=== PATIENT | female | born 1950 | race Caucasian/White ===

== ENCOUNTER 2017-08-26 07:49 | Inpatient (IN) | payer BC, OTHER ==
[2017-08-26 07:57] VITALS: BMI 28.2
[2017-08-26] MEDS ORDERED: SODIUM CHLORIDE 0.9% 1000 ML INFUS.BAG IV ONE (08:22)
[2017-08-26] MEDS ORDERED: FOLIC ACID 1 MG TABLET (FP) PO ONE (08:22)
[2017-08-26] MEDS ORDERED: ONDANSETRON 4 MG/2 ML VIAL IVPUSH ONE (08:22)
[2017-08-26] MEDS ORDERED: LORazepam 2 MG/ML SDV VIAL ONE ×2 (08:22→16:57)
[2017-08-26] MEDS ORDERED: ONDANSETRON 4 MG/2 ML VIAL ONE (08:23)
[2017-08-26] MEDS ORDERED: THIAMINE HCL 200 MG/2 ML VIAL ONE (08:26)
[2017-08-26] MEDS ORDERED: FOLIC ACID 1 MG TABLET (FP) ONE (08:26)
--- NOTE | 2017-08-26 08:31 | PDOC ---
History of Present Illness - History of Present Illness Initial Comments: 08/26/17 08:30 66 year old female with a hx of alcohol abuse presented to the hospital with 1 day hx of non-bloody, non-bilious vomiting and tremors. She states that she drinks every day, but tried to stop yesterday. She started to feel tremors and nauseous last night, and reports vomiting numerous times. Reports drinking 2 beers this morning. She complains of a severe headache and right shoulder pain after a fall yesterday. Denies fevers or chills, chest pain, SOB. Allergies: none Smoking: Alcohol: every day, 2-3 drinks <Gustavo Lux - Last Filed: 08/26/17 09:08> <Davis Cedillo - Last Filed: 08/26/17 11:08> - General Chief Complaint: Alcohol intoxication Stated Complaint: INTOX Past History - Past Medical History Anemia: No Asthma: No Cancer: No Cardiac Disorders: No CVA: No COPD: No CHF: No Dementia: No Diabetes: No GI Disorders: No Disorders: No HTN: No Hypercholesterolemia: No Liver Disease: No Psychiatric Problems: Yes (DEPRESSION) Seizures: No Thyroid Disease: No - Suicide/Smoking/Psychosocial Hx Smoking History: Never smoked Hx Alcohol Use: Yes Substance Use Type: Alcohol Hx Substance Use Treatment: Yes ([facility]) <Gustavo Lux - Last Filed: 08/26/17 09:08> <Davis Cedillo - Last Filed: 08/26/17 11:08> - Past Medical History Allergies/Adverse Reactions: Allergies Allergy/AdvReac Type Severity Reaction Status Date / Time No Known Allergies Allergy Verified 08/26/17 07:53 Home Medications: Ambulatory Orders Prednisolone 1% Ophthalmic [Pred Forte 1% -] 1 ml OP DAILY 08/06/13 *Physical Exam - Vital Signs Last Vital Signs Temp Pulse Resp BP Pulse Ox 98 F 117 H 32 H 132/89 99 08/26/17 07:50 08/26/17 07:50 08/26/17 07:50 08/26/17 07:50 08/26/17 07:50 - Physical Exam Comments: 08/26/17 09:04 GENERAL: A&Ox3, moderate distress EYES: PERRLA, EOMI ENT: Moist mucus membranes NECK: No JVD LUNGS: CTA, no wheezes HEART: RRR, no murmurs ABDOMEN: Soft, nontender, BS present MUSCULOSKELETAL: No CVA Tenderness EXTREMITIES: 2+ pulses, no edema. ecchymotic areas noted on R shoulder NEUROLOGICAL: Cranial nerves II-XII intact. moderate tremors noted diffusely <Gustavo Lux - Last Filed: 08/26/17 09:08> - Vital Signs Last Vital Signs Temp Pulse Resp BP Pulse Ox 98 F 117 H 32 H 132/89 99 08/26/17 07:50 08/26/17 07:50 08/26/17 07:50 08/26/17 07:50 08/26/17 07:50 <Davis Cedillo - Last Filed: 08/26/17 11:08> ED Treatment Course - LABORATORY CBC & Chemistry Diagram: 08/26/17 08:28 08/26/17 08:28 <Gustavo Lux - Last Filed: 08/26/17 09:08> - LABORATORY CBC & Chemistry Diagram: 08/26/17 08:28 08/26/17 08:28 - ADDITIONAL ORDERS Additional order review: Laboratory Results 08/26/17 08/26/17 08:28 08:28 Sodium 126 L Potassium 4.0 Chloride 86 L Carbon Dioxide 25 Anion Gap 15 BUN 15 Creatinine 1.1 H Creat Clearance w eGFR 49.39 Random Glucose 170 H Calcium 9.0 Total Bilirubin 1.5 H D AST 26 ALT 29 Alkaline Phosphatase 107 Troponin I < 0.02 Total Protein 8.0 Albumin 4.1 Alcohol, Quantitative < 5.0 08/26/17 08:28 RBC 5.32 H MCV 83.5 MCHC 33.7 RDW 13.6 MPV 7.5 Neutrophils % 74.1 Lymphocytes % 19.0 Monocytes % 6.2 D Eosinophils % 0.2 D Basophils % 0.5 - RADIOLOGY Radiology Studies Ordered: Category Date Time Status HEAD CT WITHOUT CONTRAST [CT] Stat CT Scan 08/26/17 08:23 Completed SHOULDER-RIGHT [RAD] Stat Radiology 08/26/17 08:23 Taken - Medications Given in the ED: ED Medications Discontinued Medications Generic Name Dose Route Start Last Admin Trade Name Freq PRN Reason Stop Dose Admin Folic Acid 1 mg 08/26/17 08:22 08/26/17 08:31 Folic Acid - PO 08/26/17 08:23 1 mg ONCE ONE Administration Lorazepam 2 mg 08/26/17 08:21 08/26/17 08:25 Ativan Injection - IVPUSH 08/26/17 08:22 2 mg ONCE ONE Administration Ondansetron HCl 4 mg 08/26/17 08:22 08/26/17 08:32 Zofran Injection IVPUSH 08/26/17 08:23 4 mg ONCE ONE Administration Sodium Chloride 1,000 ml 08/26/17 08:22 08/26/17 08:31 Normal Saline - IV 08/26/17 08:23 1,000 ml ONCE ONE Administration Thiamine HCl 200 mg 08/26/17 08:35 08/26/17 08:38 Vitamin B1 Injection - IVPB 08/26/17 08:36 200 mg ONCE ONE Administration <Davis Cedillo - Last Filed: 08/26/17 11:08> Medical Decision Making - Medical Decision Making 08/26/17 09:05 66 year old female hx alcohol abuse presents for alcohol withdrawal-like symptoms Plan: CBC, CMP, mag <Gustavo Lux - Last Filed: 08/26/17 09:08> *DC/Admit/Observation/Transfer <Gustavo Lux - Last Filed: 08/26/17 09:08> - Discharge Dispostion Decision to Admit order: Yes <Davis Cedillo - Last Filed: 08/26/17 11:08> Diagnosis at time of Disposition: Hyponatremia Alcohol withdrawal Qualifiers: Complication of substance-induced condition: with unspecified complication Qualified Code(s): F10.239 - Alcohol dependence with withdrawal, unspecified - Referrals Referrals: Jackson Guadalupe [Primary Care Provider] - - Patient Instructions - Post Discharge Activity
[2017-08-26] MEDS ORDERED: THIAMINE HCL 200 MG/2 ML VIAL IVPB ONE (08:35)
[2017-08-26 08:43] LABS: BASO % 0.5 % (0-2.0); EOS % 0.2 % (0-4.5); HEMATOCRIT 44.4 % (32.4-45.2); MCH 28.2 pg (25.7-33.7); MCHC 33.7 g/dl (32.0-36.0); MEAN CELL VOLUME 83.5 fl (80-96); MEAN PLT VOLUME 7.5 fl (7.5-11.1); MONO % 6.2 % (3.8-10.2); NEUT % 74.1 % (42.8-82.8); PLATELET COUNT 572 K/MM3 (134-434); RBC 5.32 M/mm3 (3.60-5.2); RDW 13.6 % (11.6-15.6); WHITE BLOOD COUNT 14.8 K/mm3 (4.0-10.0)
--- NOTE | 2017-08-26 08:58 | PDOC ---
Attending Attestation - HPI HPI: 08/26/17 09:09 The patient is a 66 year old female with a significant past medical history of EtOH abuse who presents to the emergency department for evaluation of alcohol intoxication. The patient was found in her home by her friend unresponsive, reeking of alcohol this morning. The patient reports drinking her last beer at 6am. She states she has been binge drinking over the last week, but tried to stop. The patient reports moderate right shoulder pain after a fall yesterday. The patient reports associated symptoms of diaphoresis, headache, nausea, and multiple episodes of NBNB emesis since midnight. She states she was sober a couple of months ago. The patient admits to undergoing detox for EtOH abuse. The patient denies chest pain, shortness of breath, dizziness, fever, chills, and urinary/bowel issues. Allergies: NKDA Social History: Alcohol consumption reported. No cigarette or drug use reported. Surgical History: Patient denies. PCP: Dr. Guadalupe ([phone]) - Physicial Exam PE: Vitals: Triage Vital signs reviewed General Appearance: no acute distress, well nourished well developed, Head: Atraumatic, normocephalic Eyes: Pupils equal reactive round, extraocular movement intact Neck: Supple Chest Wall: Nontender Cardiac: Regular rate and rhythm, no murmurs, no rubs, no gallops, Lungs: Clear to auscultation bilateral, good air movement bilaterally, Abdomen: Soft, nondistended, nontender Extremities: Full range of motion to all extremities, no cyanosis, clubbing, or edema Skin: Warm and dry, no rashes or lesions, no petechiae Psych: normal mood, normal affect <Vicki Ng - Last Filed: 08/26/17 10:23> - Resident Resident Name: Gustavo Lux - ED Attending Attestation I have performed the following: I have examined & evaluated the patient, The case was reviewed & discussed with the resident, I agree w/resident's findings & plan, Exceptions are as noted - Critical Care Time Total Critical Care Time: 35 Critical Care Statement: The care of this patient involved high complexity decision making to prevent further life threatening deterioration of the patient 's condition and/or to evaluate & treat vital organ system(s) failure or risk of failure. - Medical Decision Making 08/26/17 16:44 The patient is a 66 year old female with a significant past medical history of EtOH abuse who presents to the emergency department for evaluation of alcohol intoxication. The patient was found in her home by her friend unresponsive, reeking of alcohol this morning. The patient reports drinking her last beer at 6am. She states she has been binge drinking over the last week, but tried to stop. The patient reports moderate right shoulder pain after a fall yesterday. The patient reports associated symptoms of diaphoresis, headache, nausea, and multiple episodes of NBNB emesis since midnight. She states she was sober a couple of months ago. The patient admits to undergoing detox for EtOH abuse. Patient presents to the emergency department in alcohol withdrawal. Given tachycardia and anxiousness diaphoresis nausea 2 mg Ativan given IV fluids given thiamine and folate acid given Given history of fall head CT shoulder x-ray chest x-ray performed no significant acute pathology noted Given the need for intravenous medication to control alcohol withdrawal patient to be observed in the hospital for additional monitoring and management of acute alcohol withdrawal <Davis Cedillo - Last Filed: 08/26/17 16:45> Attestations - Attestations Documentation prepared by Vicki Ng, acting as medical csr for Davis Cedillo MD. <Vicki Ng - Last Filed: 08/26/17 10:23>
[2017-08-26 09:03] LABS: ALBUMIN 4.1 g/dl (3.4-5.0); ANION GAP 15 (8-16); BILIRUBIN,TOTAL 1.5 mg/dL (0.2-1.0); BLOOD UREA NITROGEN 15 mg/dL (7-18); CHLORIDE 86 mmol/L (98-107); CO2 25 mmol/L (21-32); CREATININE 1.1 mg/dL (0.55-1.02); GLUCOSE,RANDOM 170 mg/dL (74-106); SGOT/AST 26 U/L (15-37); SGPT/ALT 29 U/L (12-78); SODIUM 126 mmol/L (136-145)
[2017-08-26 09:04] LABS: ALK PHOS 107 U/L (45-117)
[2017-08-26] MEDS ORDERED: THIAMINE HCL 200 MG/2 ML VIAL IVPB SCH (10:00)
--- NOTE | 2017-08-26 11:29 | HP ---
CHIEF COMPLAINT: " Tremors, NBNB vomiting after I stopped drinking alcohol" PCP: Dr. Beyer Pschiatrist: Dr. Guadalupe HISTORY OF PRESENT ILLNESS: Patient is a 66 year old female presented to the ED with the chief complaint of tremors, NBNB vomiting after she stopped drinking alcohol. As per the patient, she has been an alcoholic on/off since age 23 yrs, has been an AA member, goes to the meeting but it doesn't help, last rehab was 4 yrs ago. Patient reports she drank alcohol over the weekend-finished 2 bottles of vodka and 18 cans of beer. Had a mechanical fall and hit her right side of the head, remembers that she blacked out but doesn't remember the details. She stopped drinking since Wednesday and started having tremors, NBNB vomiting, several episodes, belching but no abdominal pain. This morning she took 2 cans of beer which didn't help her symptoms hence came in to the ED for further evaluation. Hasn't been drinking water or eating proper food for many days. At this time, denies chest pain, sob, cough, palpitation, abdominal pain, vomiting, headache, blurring of vision. Bowel habit normal. Last BM was today. Bladder habit normal. Sleep normal. 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, retinal detachment PAST SURGICAL HISTORY: Right eye surgery Social History: Smoking: Denies Alcohol: Started drinking at age 23, last drink this morning- 2 cans of beer Drugs: Denies Family History: Non contributory Allergies No Known Allergies Allergy (Verified 08/26/17 07:53) HOME MEDICATIONS: Home Medications Medication Instructions Recorded Prednisolone 1% Ophthalmic [Pred 1 ml OP DAILY 08/06/13 Forte 1% -] REVIEW OF SYSTEMS CONSTITUTIONAL: Absent: fever, chills, diaphoresis, generalized weakness, malaise, loss of appetite, weight change HEENT: Absent: rhinorrhea, nasal congestion, throat pain, throat swelling, difficulty swallowing, mouth swelling, ear pain, eye pain, visual changes CARDIOVASCULAR: Absent: chest pain, syncope, palpitations, irregular heart rate, lightheadedness , peripheral edema RESPIRATORY: Absent: cough, shortness of breath, dyspnea with exertion, orthopnea, wheezing, stridor, hemoptysis GASTROINTESTINAL: Present: Nausea, vomiting Absent: abdominal pain, abdominal distension, diarrhea, constipation, melena, hematochezia GENITOURINARY: Absent: dysuria, frequency, urgency, hesitancy, hematuria, flank pain, genital pain MUSCULOSKELETAL: Absent: myalgia, arthralgia, joint swelling, back pain, neck pain SKIN: Absent: rash, itching, pallor HEMATOLOGIC/IMMUNOLOGIC: Absent: easy bleeding, easy bruising, lymphadenopathy, frequent infections ENDOCRINE: Absent: unexplained weight gain, unexplained weight loss, heat intolerance, cold intolerance NEUROLOGIC: Absent: headache, focal weakness or paresthesias, dizziness, unsteady gait, seizure, mental status changes, bladder or bowel incontinence PSYCHIATRIC: Absent: anxiety, depression, suicidal or homicidal ideation, hallucinations. PHYSICAL EXAMINATION Vital Signs - 24 hr 08/26/17 07:50 Temperature 98 F Pulse Rate 117 H Respiratory 32 H Rate Blood Pressure 132/89 O2 Sat by Pulse 99 Oximetry (%) GENERAL: Patient is a middle aged women, lying comfortably in bed, Awake, alert , and fully oriented, in no acute distress. HEAD: Bluish/yellowish discoloration on the right temporal area and right mandible. EYES: EOM intact, no pallor or icterus. Right eye-complete loss of vision. EARS, NOSE, THROAT: Ears normal. Dry mucous membranes. NECK: Supple. LUNGS: B/L Breath sounds equal, clear to auscultation bilaterally. No wheezes, and no crackles. No accessory muscle use. HEART: Tachycardic, Regular rate and rhythm, normal S1 and S2 without murmur. ABDOMEN: Soft, nontender, not distended, normoactive bowel sounds, no guarding, no rebound, no masses. No hepatomegaly or splenomegaly. MUSCULOSKELETAL: Normal range of motion at all joints. No bony deformities or tenderness. No CVA tenderness. UPPER EXTREMITIES: 2+ pulses, warm, well-perfused. No cyanosis. No clubbing. No peripheral edema. LOWER EXTREMITIES: 2+ pulses, warm, well-perfused. No calf tenderness. No peripheral edema. NEUROLOGICAL: No facial droop, B/L upper extremity tremors +; Cranial nerves II -XII intact. Normal speech. Gait not observed. PSYCHIATRIC: Cooperative. Good eye contact. Appropriate mood and affect. SKIN: Warm, dry, normal turgor, no rashes or lesions noted, normal capillary refill. Laboratory Results - last 24 hr 08/26/17 08/26/17 08/26/17 08:28 08:28 08:28 WBC 14.8 H D RBC 5.32 H Hgb 15.0 D Hct 44.4 MCV 83.5 MCH 28.2 MCHC 33.7 RDW 13.6 Plt Count 572 H D MPV 7.5 Absolute Neuts (auto) 11.0 Neutrophils % 74.1 Lymphocytes % 19.0 Monocytes % 6.2 D Eosinophils % 0.2 D Basophils % 0.5 Nucleated RBC % 0 Sodium 126 L Potassium 4.0 Chloride 86 L Carbon Dioxide 25 Anion Gap 15 BUN 15 Creatinine 1.1 H Creat Clearance w eGFR 49.39 Random Glucose 170 H Calcium 9.0 Total Bilirubin 1.5 H D AST 26 ALT 29 Alkaline Phosphatase 107 Troponin I < 0.02 Total Protein 8.0 Albumin 4.1 Alcohol, Quantitative < 5.0 ASSESSMENT/PLAN: Patient is a 66 year old female with significant past medical history of Alcohol abuse, Depression, 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 # Asymptomatic hyponatremia likely due to poor oral intake and beer potomania Na- 126, Will give her IV fluids, repeat BMP at 2pm. Will check Mg, Phos at . Encourage PO intake # Alcohol withdrawal CIWA score of 4 Feels better after she received 4mg of IV Ativan Still nauseous, No Zofran or any qtc prolonging agents to be given. Will give IV Phenargan 12.5 mg Q6H PRN IV Ativan 2mg TID PRN for withdrawals, rest as per Dr. Camejo Detox consult requested Alcohol cessation counseling # Prolonged Qtc Admit in Tele, continuous cardiac monitoring Qtc - 532, will repeat EKG in the evening Hold Lexapro as it causes prolonged qtc. Avoid any agents prolonging qtc. # Depression Hold Lexapro # FEN IV NS @ 100 mls/hr Electrolytes to be repeated Regular diet # Prophylaxis For DVT: On SCDs, ambulating For GI: IV Protonix 40 mg BID # Code Status: Full Code # Dispo: Admitted in Tele/Inpatient. Duration of stay unknown. Illness, Investigation and Plan of care explained to the patient. She verbalized understanding. Case discussed with Dr. Patrick. Hospitalist Screening - Colonoscopy Questionnaire Colonoscopy Questionnaire: Colonoscopy Questionnaire
[2017-08-26] MEDS ORDERED: SODIUM CHLORIDE 1,000 ML IV SCH (11:45)
--- NOTE | 2017-08-26 12:54 | PN ---
Teaching Attending Note Name of Resident: Jenny Holm ATTENDING PHYSICIAN STATEMENT I saw and evaluated the patient. I reviewed the resident's note and discussed the case with the resident. I agree with the resident's findings and plan as documented. SUBJECTIVE: This is a 66 year old woman with a history of alcohol abuse who comes to the ED complaining of tremors and vomiting. She reports binge drinking 2 bottles of vodka and 18 cans of beer over this past weekend 08/20-. She reports blacking out and hitting the right side of the head. Her last drink was 08/23. Since then she has been vomiting and feeling tremulous. She denies abdominal pain, hematemesis, melena, rectal bleeding. This morning she drank 2 cans of beer without improvement of her symptoms. OBJECTIVE: Vital Signs Period Temp Pulse Resp BP Sys/[place] Pulse Ox Last 24 Hr 98 F-98.8 F 92-117 18-32 132-150/89-89 99-100 HEART: S1S2, tachycardic LUNGS: Clear ABDOMEN: Soft, non-tender, non-distended, normal BS EXTREMITIES: No edema Laboratory Tests 08/26/17 08/26/17 08/26/17 08:28 08:28 08:28 WBC 14.8 H D RBC 5.32 H Hgb 15.0 D Hct 44.4 MCV 83.5 MCH 28.2 MCHC 33.7 RDW 13.6 Plt Count 572 H D MPV 7.5 Absolute Neuts (auto) 11.0 Neutrophils % 74.1 Lymphocytes % 19.0 Monocytes % 6.2 D Eosinophils % 0.2 D Basophils % 0.5 Nucleated RBC % 0 Sodium 126 L Potassium 4.0 Chloride 86 L Carbon Dioxide 25 Anion Gap 15 BUN 15 Creatinine 1.1 H Creat Clearance w eGFR 49.39 Random Glucose 170 H Calcium 9.0 Total Bilirubin 1.5 H D AST 26 ALT 29 Alkaline Phosphatase 107 Troponin I < 0.02 Total Protein 8.0 Albumin 4.1 Alcohol, Quantitative < 5.0 Home Medications Medication Instructions Recorded Prednisolone 1% Ophthalmic [Pred 1 ml OP DAILY 08/06/13 Forte 1% -] ASSESSMENT AND PLAN: This is a 66 year old woman with a history of alcohol abuse who presented to the ED with tremors and vomiting 3 days after binge drinking. 1. Hyponatremia - Secondary to poor oral intake, alcohol - IV fluid - Monitor electrolytes 2. Alcohol withdrawal, uncomplicated - Start Librium detox 3. Alcohol abuse, episodic - Start multivitamin, thiamine, folic acid 4. Prolonged QTc - Hold Lexapro - Monitor on telemetry - Repeat EKG
[2017-08-26 13:02] LABS: URINE APPEARANCE CLEAR; URINE BILIRUBIN NEGATIVE (<2.0 mg/dL); URINE COLOR LTYELLOW; URINE GLUCOSE (UA) NEGATIVE (NEGATIVE); URINE KETONE TRACE (NEGATIVE); URINE NITRITE NEGATIVE (NEGATIVE); URINE PROTEIN NEGATIVE (NEGATIVE); URINE UROBILINOGEN NEGATIVE mg/dL (0.2-1.0)
[2017-08-26 13:03] LABS: URINE LEUK ESTERASE 2+ (NEGATIVE)
[2017-08-26 13:05] LABS: EPI CELLS RARE /HPF (FEW)
[2017-08-26] MEDS ORDERED: PROMETHAZINE HCL 25 MG/1 ML VIAL IVPB PRN (13:08)
[2017-08-26] MEDS ORDERED: LORazepam 2 MG/ML SDV VIAL IVPUSH PRN (13:14)
[2017-08-26] MEDS ORDERED: PANTOPRAZOLE SODIUM 40 MG VIAL ONE (13:25)
[2017-08-26 13:26] LABS: COCAINE, UR NEGATIVE ng/ml (CUTOFF=300); METHADONE, UR NEGATIVE ng/ml (CUTOFF=300); OPIATES, URI NEGATIVE ng/ml (CUTOFF=300); PHENCYCLIDINE,URINE NEGATIVE ng/ml (CUTOFF=25); URINE AMPHETAMINES NEGATIVE ng/ml (CUTOFF=500); URINE BARBITURATES NEGATIVE ng/ml (CUTOFF=200); URINE BENZODIAZEPINES NEGATIVE ng/ml (CUTOFF=200)
[2017-08-26] MEDS: PANTOPRAZOLE SODIUM 40 MG VIAL IVPUSH SCH ×2 (13:31→22:52)
--- NOTE | 2017-08-26 13:57 | EKG ---
Test Reason : Blood Pressure : / mmHG Vent. Rate : 095 BPM Atrial Rate : 095 BPM P-R Int : 108 ms QRS Dur : 100 ms QT Int : 424 ms P-R-T Axes : -02 043 063 degrees QTc Int : 532 ms POOR DATA QUALITY, INTERPRETATION MAY BE ADVERSELY AFFECTED SINUS RHYTHM WITH SHORT MD PROLONGED QT ABNORMAL ECG WHEN COMPARED WITH ECG OF 06-AUG-2013 16:01, QT HAS LENGTHENED Confirmed by BRYANT ROBISON, OLGA ([id number]) on 08/26/2017 1:57:19 PM Referred By: Confirmed By:OLGA HURTADO MD
[2017-08-26 15:10] LABS: ANION GAP 12 (8-16); BLOOD UREA NITROGEN 13 mg/dL (7-18); CALCIUM 8.3 mg/dL (8.5-10.1); CHLORIDE 92 mmol/L (98-107); CO2 27 mmol/L (21-32); CREATININE 0.8 mg/dL (0.55-1.02); GLUCOSE,RANDOM 118 mg/dL (74-106); POTASSIUM 3.6 mmol/L (3.5-5.1); SODIUM 131 mmol/L (136-145)
[2017-08-26 15:12] LABS: PHOSPHOROUS 3.9 mg/dL (2.5-4.9)
--- NOTE | 2017-08-26 15:51 | EKG ---
Test Reason : Blood Pressure : / mmHG Vent. Rate : 107 BPM Atrial Rate : 107 BPM P-R Int : 114 ms QRS Dur : 098 ms QT Int : 386 ms P-R-T Axes : 030 050 067 degrees QTc Int : 515 ms SINUS TACHYCARDIA OTHERWISE NORMAL ECG WHEN COMPARED WITH ECG OF 26-AUG-2017 11:50, NO SIGNIFICANT CHANGE WAS FOUND Confirmed by OLGA HURTADO MD ([id number]) on 08/26/2017 3:50:50 PM Referred By: Confirmed By:OLGA HURTADO MD
[2017-08-26 16:52] LABS: MAGNESIUM 2.3 mg/dL (1.8-2.4)
--- NOTE | 2017-08-26 17:35 | PN ---
S CIWA - CIWA Score Nausea/Vomitin-No Nausea/No Vomiting (alcohol withdrawal) Muscle Tremors: 2 Anxiety: 1-Mildly Anxious Agitation: 1-Slight > Activity Paroxysmal Sweats: No Perspiration Orientation: 0-Oriented Tacttile Disturbances: 0-None Auditory Disturbances: 0-None Visual Disturbances: 0-None Headache: 2-Mild (pt in alcohol withdrawal) CIWA-Ar Total Score: 6
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
[2017-08-26] MEDS ORDERED: chlordiazePOXIDE HCL 25 MG CAPSULE PO PRN (17:45)
[2017-08-26] MEDS ORDERED: chlordiazePOXIDE HCL 25 MG CAPSULE ONE (17:46)
[2017-08-26] MEDS: chlordiazePOXIDE HCL 25 MG CAPSULE PO ONE ×2 (17:46→17:51)
[2017-08-26] MEDS: chlordiazePOXIDE HCL 25 MG CAPSULE PO SCH (22:51)
[2017-08-27] MEDS: chlordiazePOXIDE HCL 25 MG CAPSULE PO SCH ×3 (05:49→16:52)
--- NOTE | 2017-08-27 07:14 | PN ---
Physical Exam: SUBJECTIVE: Patient seen and examined OBJECTIVE: Vital Signs Period Temp Pulse Resp BP Sys/[place] Pulse Ox Last 24 Hr 97.9 F-98.8 F 72-117 16-32 125-150/58-89 97-100 GENERAL: The patient is awake, alert, and fully oriented, in no acute distress. HEAD: Normal with no signs of trauma. EYES: PERRL, extraocular movements intact, sclera anicteric, conjunctiva clear. No ptosis. ENT: Ears normal, nares patent, oropharynx clear without exudates, moist mucous membranes. NECK: Trachea midline, full range of motion, supple. LUNGS: Breath sounds equal, clear to auscultation bilaterally, no wheezes, no crackles, no accessory muscle use. HEART: Regular rate and rhythm, S1, S2 without murmur, rub or gallop. ABDOMEN: Soft, nontender, nondistended, normoactive bowel sounds, no guarding, no rebound, no hepatosplenomegaly, no masses. EXTREMITIES: 2+ pulses, warm, well-perfused, no edema. NEUROLOGICAL: Cranial nerves II through XII grossly intact. Normal speech, gait not observed. PSYCH: Normal mood, normal affect. SKIN: Warm, dry, normal turgor, no rashes or lesions noted Laboratory Results - last 24 hr 08/26/17 08/26/17 08/26/17 08:28 08:28 08:28 WBC 14.8 H D RBC 5.32 H Hgb 15.0 D Hct 44.4 MCV 83.5 MCH 28.2 MCHC 33.7 RDW 13.6 Plt Count 572 H D MPV 7.5 Absolute Neuts (auto) 11.0 Neutrophils % 74.1 Lymphocytes % 19.0 Monocytes % 6.2 D Eosinophils % 0.2 D Basophils % 0.5 Nucleated RBC % 0 Sodium 126 L Potassium 4.0 Chloride 86 L Carbon Dioxide 25 Anion Gap 15 BUN 15 Creatinine 1.1 H Creat Clearance w eGFR 49.39 Random Glucose 170 H Calcium 9.0 Phosphorus Magnesium Total Bilirubin 1.5 H D AST 26 ALT 29 Alkaline Phosphatase 107 Troponin I < 0.02 Total Protein 8.0 Albumin 4.1 Urine Color Urine Appearance Urine pH Ur Specific [place] Urine Protein Urine Glucose (UA) Urine Ketones Urine Blood Urine Nitrite Urine Bilirubin Urine Urobilinogen Ur Leukocyte Esterase Urine WBC (Auto) Urine RBC (Auto) Ur Epithelial Cells Opiates Screen Methadone Screen Barbiturate Screen Phencyclidine Screen Ur Amphetamines Screen MDMA (Ecstasy) Screen Benzodiazepines Screen Cocaine Screen U Marijuana (THC) Screen Alcohol, Quantitative < 5.0 08/26/17 08/26/17 08/26/17 12:50 12:53 14:15 WBC RBC Hgb Hct MCV MCH MCHC RDW Plt Count MPV Absolute Neuts (auto) Neutrophils % Lymphocytes % Monocytes % Eosinophils % Basophils % Nucleated RBC % Sodium Potassium Chloride Carbon Dioxide Anion Gap BUN Creatinine Creat Clearance w eGFR Random Glucose Calcium Phosphorus 3.9 Magnesium 2.3 Total Bilirubin AST ALT Alkaline Phosphatase Troponin I Total Protein Albumin Urine Color Ltyellow Urine Appearance Clear Urine pH 6.0 Ur Specific [place] 1.005 Urine Protein Negative Urine Glucose (UA) Negative Urine Ketones Trace H Urine Blood 1+ H Urine Nitrite Negative Urine Bilirubin Negative Urine Urobilinogen Negative Ur Leukocyte Esterase 2+ H Urine WBC (Auto) 1 Urine RBC (Auto) 1 Ur Epithelial Cells Rare Opiates Screen Negative Methadone Screen Negative Barbiturate Screen Negative Phencyclidine Screen Negative Ur Amphetamines Screen Negative MDMA (Ecstasy) Screen Negative Benzodiazepines Screen Negative Cocaine Screen Negative U Marijuana (THC) Screen Negative Alcohol, Quantitative 08/26/17 14:15 WBC RBC Hgb Hct MCV MCH MCHC RDW Plt Count MPV Absolute Neuts (auto) Neutrophils % Lymphocytes % Monocytes % Eosinophils % Basophils % Nucleated RBC % Sodium 131 L Potassium 3.6 Chloride 92 L Carbon Dioxide 27 Anion Gap 12 BUN 13 Creatinine 0.8 Creat Clearance w eGFR > 60 Random Glucose 118 H Calcium 8.3 L Phosphorus Magnesium Total Bilirubin AST ALT Alkaline Phosphatase Troponin I Total Protein Albumin Urine Color Urine Appearance Urine pH Ur Specific [place] Urine Protein Urine Glucose (UA) Urine Ketones Urine Blood Urine Nitrite Urine Bilirubin Urine Urobilinogen Ur Leukocyte Esterase Urine WBC (Auto) Urine RBC (Auto) Ur Epithelial Cells Opiates Screen Methadone Screen Barbiturate Screen Phencyclidine Screen Ur Amphetamines Screen MDMA (Ecstasy) Screen Benzodiazepines Screen Cocaine Screen U Marijuana (THC) Screen Alcohol, Quantitative Active Medications Generic Name Dose Route Start Last Admin Trade Name Freq PRN Reason Stop Dose Admin Chlordiazepoxide HCl 50 mg 08/26/17 23:00 08/27/17 05:49 Librium - PO 08/27/17 17:01 50 mg [id number] SU Administration Chlordiazepoxide HCl 25 mg 08/27/17 23:00 Librium - PO 08/28/17 17:01 [id number] SU Chlordiazepoxide HCl 15 mg 08/28/17 23:00 Librium - PO 08/29/17 17:01 [id number] SU Chlordiazepoxide HCl 25 mg 08/26/17 17:45 Librium - PO 08/29/17 17:44 Q4H PRN WITHDRAWAL(CONT SUBST) Sodium Chloride 1,000 mls @ 100 mls/hr 08/26/17 11:45 08/26/17 11:57 Normal Saline - IV 100 mls/hr ASDIR SU Administration Lorazepam 2 mg 08/26/17 13:14 08/26/17 17:03 Ativan Injection - IVPUSH 2 mg TID PRN Administration WITHDRAWAL(CONT SUBST) Pantoprazole Sodium 40 mg 08/26/17 12:30 08/26/17 22:52 Protonix Iv IVPUSH 40 mg BID SU Administration Promethazine HCl 12.5 mg 08/26/17 13:08 Phenergan Injection - IVPB Q6H PRN NAUSEA AND/OR VOMITING Current Medications Chlordiazepoxide HCl (Librium -) 50 mg PO [id number] SU Stop: 08/27/17 17:01 Last Admin: 08/27/17 05:49 Dose: 50 mg Chlordiazepoxide HCl (Librium -) 25 mg PO [id number] SU Stop: 08/28/17 17:01 Chlordiazepoxide HCl (Librium -) 15 mg PO [id number] SU Stop: 08/29/17 17:01 Chlordiazepoxide HCl (Librium -) 25 mg PO Q4H PRN PRN Reason: WITHDRAWAL(CONT SUBST) Stop: 08/29/17 17:44 Sodium Chloride (Normal Saline -) 1,000 mls @ 100 mls/hr IV ASDIR SU Last Admin: 08/26/17 11:57 Dose: 100 mls/hr Lorazepam (Ativan Injection -) 2 mg IVPUSH TID PRN PRN Reason: WITHDRAWAL(CONT SUBST) Last Admin: 08/26/17 17:03 Dose: 2 mg Pantoprazole Sodium (Protonix Iv) 40 mg IVPUSH BID SU Last Admin: 08/26/17 22:52 Dose: 40 mg Promethazine HCl (Phenergan Injection -) 12.5 mg IVPB Q6H PRN PRN Reason: NAUSEA AND/OR VOMITING Ambulatory Orders Prednisolone 1% Ophthalmic [Pred Forte 1% -] 1 ml OP DAILY 08/06/13 ASSESSMENT/PLAN:
[2017-08-27 07:21] LABS: HEMOGLOBIN 12.6 GM/dL (10.7-15.3); MCHC 34.1 g/dl (32.0-36.0); MEAN CELL VOLUME 85.1 fl (80-96); MEAN PLT VOLUME 7.1 fl (7.5-11.1); PLATELET COUNT 354 K/MM3 (134-434); RBC 4.35 M/mm3 (3.60-5.2); RDW 13.8 % (11.6-15.6); WHITE BLOOD COUNT 6.5 K/mm3 (4.0-10.0)
[2017-08-27 08:35] LABS: ANION GAP 9 (8-16); BLOOD UREA NITROGEN 14 mg/dL (7-18); CHLORIDE 103 mmol/L (98-107); CO2 29 mmol/L (21-32); GLUCOSE,RANDOM 88 mg/dL (74-106); POTASSIUM 3.2 mmol/L (3.5-5.1); SODIUM 141 mmol/L (136-145)
[2017-08-27 08:37] LABS: CREATININE 0.7 mg/dL (0.55-1.02)
[2017-08-27] MEDS: PANTOPRAZOLE SODIUM 40 MG VIAL IVPUSH SCH (09:14)
[2017-08-27] MEDS ORDERED: POTASSIUM CHLORIDE ORAL LIQUID 20 MEQ/15 ML PO SCH (10:00)
[2017-08-27 13:05] LABS: MAGNESIUM 2.7 mg/dL (1.8-2.4); PHOSPHOROUS 3.1 mg/dL (2.5-4.9)
--- NOTE | 2017-08-27 14:17 | PN ---
Teaching Attending Note Name of Resident: Reina Beckett ATTENDING PHYSICIAN STATEMENT I saw and evaluated the patient. I reviewed the resident's note and discussed the case with the resident. I agree with the resident's findings and plan as documented with exceptions below. SUBJECTIVE: patient seen and examined, feels better, no new complaints. OBJECTIVE: Vital Signs Period Temp Pulse Resp BP Sys/[place] Pulse Ox Last 24 Hr 97.8 F-98.6 F 72-106 16-20 122-143/58-82 95-100 Intake & Output 08/24/17 08/25/17 08/26/17 08/27/17 23:59 23:59 23:59 23:59 Intake Total 120 800 Balance 120 800 Weight 175 lb General: sitting in bed in no acute distress Extremities: minimal tremors upper extremities Chest: CTAB, no rales or wheezing Abdomen: soft, NT, ND CVS:S1S2 regular Home Medications Medication Instructions Recorded Prednisolone 1% Ophthalmic [Pred 1 ml OP DAILY 08/06/13 Forte 1% -] Active Medications Chlordiazepoxide HCl (Librium -) 50 mg PO [id number] [facility] Stop: 08/27/17 17:01 Last Admin: 08/27/17 11:26 Dose: 50 mg Chlordiazepoxide HCl (Librium -) 25 mg PO [id number] [facility] Stop: 08/28/17 17:01 Chlordiazepoxide HCl (Librium -) 15 mg PO [id number] [facility] Stop: 08/29/17 17:01 Chlordiazepoxide HCl (Librium -) 25 mg PO Q4H PRN PRN Reason: WITHDRAWAL(CONT SUBST) Stop: 08/29/17 17:44 Sodium Chloride (Normal Saline -) 1,000 mls @ 100 mls/hr IV ASDIR [facility] Last Admin: 08/26/17 11:57 Dose: 100 mls/hr Pantoprazole Sodium (Protonix Iv) 40 mg IVPUSH BID [facility] Last Admin: 08/27/17 09:14 Dose: 40 mg Potassium Chloride (Potassium Chloride Oral Liquid) 40 meq PO BID [facility] Last Admin: 08/27/17 11:26 Dose: 40 meq Promethazine HCl (Phenergan Injection -) 12.5 mg IVPB Q6H PRN PRN Reason: NAUSEA AND/OR VOMITING Laboratory Results - last 24 hr 06/08/26/17 08/27/17 14:15 14:15 06:40 WBC 6.5 D RBC 4.35 Hgb 12.6 D Hct 37.0 D MCV 85.1 MCH 29.0 MCHC 34.1 RDW 13.8 Plt Count 354 D MPV 7.1 L Sodium 131 L Potassium 3.6 Chloride 92 L Carbon Dioxide 27 Anion Gap 12 BUN 13 Creatinine 0.8 Creat Clearance w eGFR > 60 Random Glucose 118 H Calcium 8.3 L Phosphorus 3.9 Magnesium 2.3 08/27/17 08/27/17 06:40 08:50 WBC RBC Hgb Hct MCV MCH MCHC RDW Plt Count MPV Sodium 141 Potassium 3.2 L Chloride 103 Carbon Dioxide 29 Anion Gap 9 BUN 14 Creatinine 0.7 Creat Clearance w eGFR > 60 Random Glucose 88 Calcium 8.0 L Phosphorus 3.1 Cancelled Magnesium 2.7 H Cancelled ASSESSMENT AND PLAN: 66 yof with pMHx of ETOH abuse, depression, glaucoma, retinal detachment here with acute alcohol withdrawal, wanting detox -Acute alcohol withdrawal -Alcohol abuse -Hypokalemia -Depression Plan: Librium detox protocol. Doing better, IVF, replete K Detox consult appreciated. Unable to go to [facility], continue inhouse monitoring for active withdrawal. D/c in 48-72 hours if continues to improve. Plan discussed with patient in detail, all questions answered.
[2017-08-27] MEDS ORDERED: SODIUM CHLORIDE 1,000 ML IV SCH (14:45)
[2017-08-27 15:20] VITALS: BP 96/68; PULSE 94; TEMP 97.3
[2017-08-27] MEDS ORDERED: chlordiazePOXIDE HCL 25 MG CAPSULE PO SCH (23:00)
[2017-08-28] MEDS ORDERED: chlordiazePOXIDE 5 MG CAPSULE PO SCH (23:00)
--- NOTE | 2017-08-29 14:47 | DS ---
Physical Exam: SUBJECTIVE: Patient seen and examined. No tremors, no hallucinations, no nausea or vomiting. Tolerating PO. Out of bed to bathroom with assistance, OBJECTIVE: Vital Signs Temperature 97.3 F L 08/27/17 14:00 Pulse Rate 94 H 08/27/17 14:00 Respiratory Rate 20 08/27/17 14:00 Blood Pressure 96/68 08/27/17 14:00 O2 Sat by Pulse Oximetry (%) 95 08/27/17 09:00 PHYSICAL EXAM GENERAL: The patient is awake, alert, and fully oriented, in no acute distress. HEAD: Healing bruised jaw. EYES: PERRL, extraocular movements intact, LUNGS: Breath sounds equal, clear to auscultation bilaterally HEART: Regular rate and rhythm, S1, S2 without murmur ABDOMEN: Soft, nontender, nondistended, normoactive bowel sounds, EXTREMITIES: Absent tremors. 2+ pulses, warm, well-perfused, no edema. NEUROLOGICAL: AAOx3. No tremors at rest or with outstretched hands. Normal speech. LABS Laboratory Last Values WBC 6.5 K/mm3 (4.0-10.0) D 08/27/17 06:40 RBC 4.35 M/mm3 (3.60-5.2) 08/27/17 06:40 Hgb 12.6 GM/dL (10.7-15.3) D 08/27/17 06:40 Hct 37.0 % (32.4-45.2) D 08/27/17 06:40 MCV 85.1 fl (80-96) 08/27/17 06:40 MCH 29.0 pg (25.7-33.7) 08/27/17 06:40 MCHC 34.1 g/dl (32.0-36.0) 08/27/17 06:40 RDW 13.8 % (11.6-15.6) 08/27/17 06:40 Plt Count 354 K/MM3 (134-434) D 08/27/17 06:40 MPV 7.1 fl (7.5-11.1) L 08/27/17 06:40 Absolute Neuts (auto) 11.0 # 08/26/17 08:28 Neutrophils % 74.1 % (42.8-82.8) 08/26/17 08:28 Lymphocytes % 19.0 % (8-40) 08/26/17 08:28 Monocytes % 6.2 % (3.8-10.2) D 08/26/17 08:28 Eosinophils % 0.2 % (0-4.5) D 08/26/17 08:28 Basophils % 0.5 % (0-2.0) 08/26/17 08:28 Nucleated RBC % 0 % (0-0) 08/26/17 08:28 Sodium 141 mmol/L (136-145) 08/27/17 06:40 Potassium 3.2 mmol/L (3.5-5.1) L 08/27/17 06:40 Chloride 103 mmol/L (98-107) 08/27/17 06:40 Carbon Dioxide 29 mmol/L (21-32) 08/27/17 06:40 Anion Gap 9 (8-16) 08/27/17 06:40 BUN 14 mg/dL (7-18) 08/27/17 06:40 Creatinine 0.7 mg/dL (0.55-1.02) 08/27/17 06:40 Creat Clearance w eGFR > 60 (>60) 08/27/17 06:40 Random Glucose 88 mg/dL (74-106) 08/27/17 06:40 Calcium 8.0 mg/dL (8.5-10.1) L 08/27/17 06:40 Phosphorus 3.1 mg/dL (2.5-4.9) 08/27/17 06:40 Magnesium 2.7 mg/dL (1.8-2.4) H 08/27/17 06:40 Total Bilirubin 1.5 mg/dL (0.2-1.0) H D 08/26/17 08:28 AST 26 U/L (15-37) 08/26/17 08:28 ALT 29 U/L (12-78) 08/26/17 08:28 Alkaline Phosphatase 107 U/L (45-117) 08/26/17 08:28 Troponin I < 0.02 ng/ml (0.00-0.05) 08/26/17 08:28 Total Protein 8.0 g/dl (6.4-8.2) 08/26/17 08:28 Albumin 4.1 g/dl (3.4-5.0) 08/26/17 08:28 Urine Color Ltyellow 08/26/17 12:53 Urine Appearance Clear 08/26/17 12:53 Urine pH 6.0 (5.0-8.0) 08/26/17 12:53 Ur Specific [place] 1.005 (1.001-1.035) 08/26/17 12:53 Urine Protein Negative (NEGATIVE) 08/26/17 12:53 Urine Glucose (UA) Negative (NEGATIVE) 08/26/17 12:53 Urine Ketones Trace (NEGATIVE) H 08/26/17 12:53 Urine Blood 1+ (NEGATIVE) H 08/26/17 12:53 Urine Nitrite Negative (NEGATIVE) 08/26/17 12:53 Urine Bilirubin Negative (<2.0 mg/dL) 08/26/17 12:53 Urine Urobilinogen Negative mg/dL (0.2-1.0) 08/26/17 12:53 Ur Leukocyte Esterase 2+ (NEGATIVE) H 08/26/17 12:53 Urine WBC (Auto) 1 /hpf (3-5) 08/26/17 12:53 Urine RBC (Auto) 1 /hpf (0-3) 08/26/17 12:53 Ur Epithelial Cells Rare /HPF (FEW) 08/26/17 12:53 Opiates Screen Negative ng/ml (DBZCIB=627) 08/26/17 12:50 Methadone Screen Negative ng/ml (XSKCMH=596) 08/26/17 12:50 Barbiturate Screen Negative ng/ml (VBOYNK=788) 08/26/17 12:50 Phencyclidine Screen Negative ng/ml (CUTOFF=25) 08/26/17 12:50 Ur Amphetamines Screen Negative ng/ml (THPHZP=173) 08/26/17 12:50 MDMA (Ecstasy) Screen Negative ng/ml (ZTIZYK=296) 08/26/17 12:50 Benzodiazepines Screen Negative ng/ml (GPGSQH=017) 08/26/17 12:50 Cocaine Screen Negative ng/ml (XJRDFP=190) 08/26/17 12:50 U Marijuana (THC) Screen Negative ng/ml (CUTOFF=50) 08/26/17 12:50 Alcohol, Quantitative < 5.0 mg/dL (0.0-5.0) 08/26/17 08:28 Current Medications Chlordiazepoxide HCl (Librium -) 50 mg PO U1P-TGV SU Stop: 08/27/17 17:01 Last Admin: 08/27/17 05:49 Dose: 50 mg Chlordiazepoxide HCl (Librium -) 25 mg PO O1A-BLC SU Stop: 08/28/17 17:01 Chlordiazepoxide HCl (Librium -) 15 mg PO E2C-VPV SU Stop: 08/29/17 17:01 Chlordiazepoxide HCl (Librium -) 25 mg PO Q4H PRN PRN Reason: WITHDRAWAL(CONT SUBST) Stop: 08/29/17 17:44 Sodium Chloride (Normal Saline -) 1,000 mls @ 100 mls/hr IV ASDIR SU Last Admin: 08/26/17 11:57 Dose: 100 mls/hr Lorazepam (Ativan Injection -) 2 mg IVPUSH TID PRN PRN Reason: WITHDRAWAL(CONT SUBST) Last Admin: 08/26/17 17:03 Dose: 2 mg Pantoprazole Sodium (Protonix Iv) 40 mg IVPUSH BID SU Last Admin: 08/26/17 22:52 Dose: 40 mg Promethazine HCl (Phenergan Injection -) 12.5 mg IVPB Q6H PRN PRN Reason: NAUSEA AND/OR VOMITING Ambulatory Orders Prednisolone 1% Ophthalmic [Pred Forte 1% -] 1 ml OP DAILY 08/06/13 HOSPITAL COURSE: Date of Admission:08/26/17 Date of Discharge: 08/29/17 Patient is a 66 year old female with significant past medical history of Alcohol abuse, Depression, 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 Pt presented with a CIWA score of 4, with nausea. She was placed on Phenergan 12.5 mg Q6H PRN for Qtc - 532, she received 2/4 doses of 50mg librium overnight. Her Lexapro was held, as it causes prolonged qtc. She was managed for hyponatremia likely due to poor oral intake and beer potomania with normal saline. Pt was accepted for in patient detox at [facility] and was tranferred for further management to consider in patient rehabilitation in the future. Minutes to complete discharge: 35 Discharge Summary Reason For Visit: ALCOHOL WITHDRWAL SYNDROME Current Active Problems Alcohol dependence with uncomplicated withdrawal (Acute) Alcohol-induced mood disorder (Acute) Alcohol-induced sleep disorder (Acute) Anxiety and depression (Chronic) Glaucoma (Chronic) Condition: Improved - Instructions Diet, Activity, Other Instructions: You were seen for alcohol withdrawal You were started on detoxification We are transferring you to [facility] to continue detox and follow up rehabilitation if you choose Continue all your medications as prescribed Follow up with your primary doctor in one week Referrals: Jackson Guadalupe [Primary Care Provider] - 1 Week Disposition: TRANSFER [facility] CARE/OTHER HOSP - Home Medications Comprehensive Discharge Medication List: Ambulatory Orders Prednisolone 1% Ophthalmic [Pred Forte 1% -] 1 ml OP DAILY 08/06/13 This patient is new to me today: Yes Date on this admission: 08/27/17 Emergency Visit: No Critical Care patient: No - Discharge Referral Referred to [facility] No
== END 2017-08-27 17:53 | disposition short-term general hospital (02) | DRG 897 ==
LOC: JER 07:49 → JERBED 11:08 → OBSVTOIN 11:33 → J4S 22:34
PROVIDERS: ADMIT Internal Medicine; ATTEND Hospitalist
DX: F10.239 Alcohol dependence with withdrawal, unspecified (principal); E87.1 Hypo-osmolality and hyponatremia; F32.9 Major depressive disorder, single episode, unspecified; F10.288 Alcohol dependence with other alcohol-induced disorder; Y90.0 Blood alcohol level of less than 20 mg/100 ml; H54.61 Unqualified visual loss, right eye, normal vision left eye; I45.81 Long QT syndrome; F10.230 Alcohol dependence with withdrawal, uncomplicated; E87.6 Hypokalemia; S40.011A Contusion of right shoulder, initial encounter; W01.0XXA Fall on same level from slipping, tripping and stumbling without subsequent striking against object, initial encounter; Y93.89 Activity, other specified; Y92.89 Other specified places as the place of occurrence of the external cause; Y99.8 Other external cause status
CPT/HCPCS: 36415; 70450-TC; 73030-TC-RT-FY; 80048; 80053; 80307; 81003; 81015; 83735; 84100; 84484; 85025; 85027; 93005; 93010; 99283-25; G0378; J7030

== ENCOUNTER 2017-08-27 18:12 | Inpatient (IN) | payer OTHER ==
[2017-08-27 19:50] VITALS: BMI 28.2
--- NOTE | 2017-08-27 20:34 | HP ---
CIWA Score - CIWA Score Nausea/Vomitin Muscle Tremors: 3 Anxiety: 3 Agitation: 4-Moderately Restless Paroxysmal Sweats: No Perspiration Orientation: 1-Uncertain about Date Tacttile Disturbances: 0-None Auditory Disturbances: 0-None Visual Disturbances: 0-None Headache: 3-Moderate CIWA-Ar Total Score: 17 Admission ROS S - HPI Chief Complaint: Alcohol withdrawal symptoms Allergies/Adverse Reactions: Allergies Allergy/AdvReac Type Severity Reaction Status Date / Time No Known Allergies Allergy Verified 08/27/17 19:46 History of Present Illness: 66 years old female with a long history of alcohol withdrawal is seeking admission to detox. Patient has been to previous detox and reports 2 years of sobriety. She has medical history of depression and anxiety. She denies suicide attempt and suicidal ideation at this time. Patient is status post a fall on . Ecchymosis noted on right jaw. She denies pain or discomfort at this time. Exam Limitations: No Limitations - Ebola screening Have you traveled outside of the country in the last 21 days: No Have you had contact with anyone from an Ebola affected area: No Have you been sick,other than usual withdrawal symptoms: No Do you have a fever: No - Review of Systems Constitutional: Chills, Loss of Appetite, Malaise, Changes in sleep EENT: reports: Other (right eye blindness) Respiratory: reports: No Symptoms reported Cardiac: reports: No Symptoms Reported GI: reports: Nausea, Poor Appetite, Poor Fluid Intake, Abdominal cramping : reports: No Symptoms Reported Musculoskeletal: reports: No Symptoms Reported Integumentary: reports: Dryness Neuro: reports: Headache, Tremors Endocrine: reports: No Symptoms Reported Hematology: reports: No Symptoms Reported Psychiatric: reports: Anxious, Depressed Other Systems: Reviewed and Negative Patient History - Patient Medical History Hx Anemia: No Hx Asthma: No Hx Chronic Obstructive Pulmonary Disease (COPD): No Hx Cancer: No Hx Cardiac Disorders: No Hx Congestive Heart Failure: No Hx Hypertension: No Hx Hypercholesterolemia: No Hx Pacemaker: No HX Cerebrovascular Accident: No Hx Seizures: No Hx Dementia: No Hx Diabetes: No Hx Gastrointestinal Disorders: No Hx Liver Disease: No Hx Genitourinary Disorders: No Hx Sexually Transmitted Disorders: No Hx Renal Disease (ESRD): No Hx Thyroid Disease: No Hx Human Immunodeficiency Virus (HIV): No (Negative 2009) Hx Hepatitis C: No Hx Depression: Yes (Lexapro) Hx Suicide Attempt: No Hx Bipolar Disorder: No Hx Schizophrenia: No Other Medical History: Anxiety - Not on medication - Patient Surgical History Past Surgical History: Yes Hx Neurologic Surgery: No Hx Cataract Extraction: No Hx Cardiac Surgery: No Hx Lung Surgery: No Hx Breast Surgery: No Hx Breast Biopsy: No Hx Abdominal Surgery: No Hx Appendectomy: No Hx Cholecystectomy: No Hx Genitourinary Surgery: No Hx Section: No Hx Orthopedic Surgery: No Other Surgical History: GLAUCOMA,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 History Hx Alcohol Use: Yes Hx Substance Use: No Substance Use Type: Alcohol Hx Substance Use Treatment: Yes ([facility]) - Substances Abused Alcohol Route: Oral Frequency: Daily Amount used: LIQUOR- 1 PINT, BEER- 3 SIX PACKS Age of first use: 23 Date of Last Use: 08/26/17 Family Disease History - Family Disease History Family Disease History: Other: Father (ALCOHOL,) Admission Physical Exam BHS - Vital Signs Vital Signs: Vital Signs - 24 hr 08/27/17 19:48 Temperature 98.1 F Pulse Rate 99 H Respiratory 18 Rate Blood Pressure 136/65 - Physical General Appearance: Yes: Moderate Distress, Tremorous, Irritable, Sweating, Anxious HEENTM: Yes: EOMI, Normal ENT Inspection, Normocephalic, Normal Voice, OCTAVIO Respiratory: Yes: Lungs Clear, Normal Breath Sounds, No Respiratory Distress Neck: Yes: Supple Breast: Yes: Breast Exam Deferred Cardiology: Yes: Tachycardia Abdominal: Yes: Normal Bowel Sounds, Soft Genitourinary: Yes: Within Normal Limits Back: Yes: Normal Inspection Musculoskeletal: Yes: Within Normal Limits Extremities: Yes: Tremors Neurological: Yes: Alert, Normal Mood/Affect Integumentary: Yes: Dry Lymphatic: Yes: Within Normal Limits - Diagnostic (1) Alcohol dependence with uncomplicated withdrawal Current Visit: Yes Status: Chronic (2) Anxiety Current Visit: Yes Status: Chronic (3) Depression Current Visit: Yes Status: Chronic Qualifiers: Depression Type: unspecified Qualified Code(s): F32.9 - Major depressive disorder, single episode, unspecified (4) Status post fall Current Visit: Yes Status: Chronic (5) Blindness of right eye Current Visit: Yes Status: Chronic BHS Breath Alcohol Content Breath Alcohol Content: 0 Urine Pregancy Test - Result Urine Test Results: Negative- NO Line Present Urine Drug Screen - Results Drug Screen Negative: No Urine Drug Screen Results: BZO-Benzodiazepines
[2017-08-27] MEDS ORDERED: MAGNESIUM CITRATE 300 ML BOTTLE PO PRN (20:50)
[2017-08-27] MEDS ORDERED: MENTHOL/PHENOL 1 EACH UD MM PRN (20:50)
[2017-08-27] MEDS ORDERED: P-EPHED 60MG/TRIPROLIDI 2.5MG TABLET PO PRN (20:50)
[2017-08-27] MEDS ORDERED: LOPERAMIDE HCL 2 MG CAPSULE PO PRN (20:50)
[2017-08-27] MEDS ORDERED: NICOTINE POLACRILEX 2 MG GUM BC PRN (20:50)
[2017-08-27] MEDS ORDERED: MAG HYDROX/AL HYDROX/SIMETH 30 ML UNIT-DOSE CUP PO PRN (20:50)
[2017-08-27] MEDS ORDERED: chlordiazePOXIDE HCL 25 MG CAPSULE PO PRN (20:50)
[2017-08-27] MEDS ORDERED: ACETAMINOPHEN 325 MG TABLET (FP) PO PRN (20:50)
[2017-08-27] MEDS ORDERED: guaiFENesin/D-METHORPHAN HB 10 ML UNIT-DOSE CUPS PO PRN (20:50)
[2017-08-27] MEDS ORDERED: MAGNESIUM HYDROX 2400MG/30ML ORAL SUSPENSION 30 ML CUP PO PRN (20:50)
[2017-08-27] MEDS ORDERED: MELATONIN 5 MG TABLETS PO PRN (22:00)
[2017-08-27] MEDS: chlordiazePOXIDE HCL 25 MG CAPSULE PO SCH (22:39)
[2017-08-27] MEDS: THIAMINE HCL 100 MG TABLET (FP) PO SCH (22:39)
[2017-08-27] MEDS: IBUPROFEN 400 MG TABLET (FP) PO PRN (22:42)
[2017-08-28] MEDS: chlordiazePOXIDE HCL 25 MG CAPSULE PO SCH ×4 (05:16→22:56)
[2017-08-28] MEDS: PRENATAL VITAMINS W/ FOLIC ACID TABLET (FP) PO SCH (10:16)
[2017-08-28] MEDS: prednisoLONE ACETATE 1% OPHTH SUSP 5 ML BOTTLE OD SCH (10:16)
[2017-08-28] MEDS: NICOTINE 14 MG/24 HOURS TOPICAL PATCH TD SCH (10:17)
[2017-08-28 10:32] LABS: URINE APPEARANCE CLOUDY; URINE BILIRUBIN NEGATIVE (<2.0 mg/dL); URINE COLOR YELLOW; URINE GLUCOSE (UA) NEGATIVE (NEGATIVE); URINE KETONE NEGATIVE (NEGATIVE); URINE NITRITE NEGATIVE (NEGATIVE); URINE PROTEIN NEGATIVE (NEGATIVE); URINE UROBILINOGEN NEGATIVE mg/dL (0.2-1.0)
[2017-08-28 10:33] LABS: HEMOGLOBIN 11.3 GM/dL (10.7-15.3); MCH 28.9 pg (25.7-33.7); MCHC 33.3 g/dl (32.0-36.0); MEAN CELL VOLUME 86.7 fl (80-96); MEAN PLT VOLUME 7.4 fl (7.5-11.1); PLATELET COUNT 303 K/MM3 (134-434); RBC 3.92 M/mm3 (3.60-5.2); RDW 14.3 % (11.6-15.6); WHITE BLOOD COUNT 5.8 K/mm3 (4.0-10.0)
--- NOTE | 2017-08-28 10:44 | PN ---
BHS CIWA - CIWA Score Nausea/Vomitin Muscle Tremors: 2 Anxiety: 2 Agitation: 2 Paroxysmal Sweats: 2 Orientation: 0-Oriented Tacttile Disturbances: 1-Very Mild Itch/Numbness Auditory Disturbances: 2-Mild Harshness/Frighten Visual Disturbances: 1-Very Mild Sensitivity Headache: 2-Mild CIWA-Ar Total Score: 16 BHS Progress Note (SOAP) Subjective: Difficulty walking, tremors, malaise and interrupted sleep Objective: 08/28/17 10:43 Vital Signs - 8 hr 08/28/17 08/28/17 08/28/17 03:30 06:20 10:30 Temperature 98.1 F 96.8 F L Pulse Rate 88 90 Respiratory 16 20 18 Rate Blood Pressure 136/102 135/71 Labs pending Assessment: 08/28/17 10:44 Withdrawal sx Plan: Continue detox
[2017-08-28 10:45] LABS: URINE LEUK ESTERASE 2+ (NEGATIVE)
[2017-08-28 10:48] LABS: EPI CELLS MODERATE /HPF (FEW); URINE BACTERIA RARE /hpf (NONE SEEN); URINE MUCUS FEW
[2017-08-28 10:48] LABS: CHLORIDE 107 mmol/L (98-107); SODIUM 142 mmol/L (136-145)
[2017-08-28 11:04] LABS: ALBUMIN 2.7 g/dl (3.4-5.0); ALK PHOS 75 U/L (45-117); ANION GAP 6 (8-16); BILIRUBIN,TOTAL 0.2 mg/dL (0.2-1.0); BLOOD UREA NITROGEN 19 mg/dL (7-18); CO2 29 mmol/L (21-32); CREATININE 0.6 mg/dL (0.55-1.02); GLUCOSE,RANDOM 86 mg/dL (74-106); SGOT/AST 17 U/L (15-37); SGPT/ALT 25 U/L (12-78); TOT PROT 5.7 g/dl (6.4-8.2)
[2017-08-28] MEDS: THIAMINE HCL 100 MG TABLET (FP) PO SCH (22:56)
[2017-08-28] MEDS: IBUPROFEN 400 MG TABLET (FP) PO PRN (22:57)
[2017-08-29] MEDS: chlordiazePOXIDE HCL 25 MG CAPSULE PO SCH ×3 (05:44→17:57)
[2017-08-29] MEDS: NICOTINE 14 MG/24 HOURS TOPICAL PATCH TD SCH (10:40)
[2017-08-29] MEDS: prednisoLONE ACETATE 1% OPHTH SUSP 5 ML BOTTLE OD SCH (10:40)
[2017-08-29] MEDS: PRENATAL VITAMINS W/ FOLIC ACID TABLET (FP) PO SCH (10:40)
--- NOTE | 2017-08-29 11:12 | CONSULT ---
[facility] Psychiatric Consult - Data Date of interview: 08/29/17 Admission source: Self-referred Identifying data: Ms Bradshaw is a 66 years old female, retired receiving Social security/pension, domiciled seeking detox treatment for alcohol Substance Abuse History: Reports history of alcohol use. Refer to addiction counselor's summary for further information Medical History: Significant for PPD+ and history of surgery for glaucoma and detached retina right eye with blindness Psychiatric History: Denies history of previous treatment Physical/Sexual Abuse/Trauma History: Denies history of emotional, physical or sexual abuse as well as DV relationship. No service Additional Comment: Reports history of one previous arrest for DWI Mental Status Exam - Mental Status Exam Alert and Oriented to: Time, Place, Person Cognitive Function: Fair Patient Appearance: Well Groomed Mood: Depressed Affect: Appropriate Patient Behavior: Cooperative Speech Pattern: Clear Voice Loudness: Normal Thought Process: Intact, Goal Oriented Thought Disorder: Not Present Hallucinations: Denies Suicidal Ideation: Denies Homicidal Ideation: Denies Insight/Judgement: Poor Sleep: Poorly Appetite: Good Muscle strength/Tone: Normal Gait/Station: Normal Psychiatric Findings - Problem List ([place] 1, 2,3) (1) Alcohol-induced mood disorder Current Visit: Yes Status: Acute (2) Alcohol-induced sleep disorder Current Visit: Yes Status: Acute (3) Alcohol dependence with uncomplicated withdrawal Current Visit: Yes Status: Acute (4) Blindness of right eye Current Visit: No Status: Chronic (5) Glaucoma Current Visit: Yes Status: Chronic - Initial Treatment Plan Initial Treatment Plan: 1) Start Ambien 5 mg po HS prn foir insomnia. 2) Continue inpatient detoxification
[2017-08-29] MEDS ORDERED: ZOLPIDEM TARTRATE 5 MG TABLET PO PRN (13:10)
--- NOTE | 2017-08-29 15:21 | PN ---
S CIWA - CIWA Score Nausea/Vomitin-Mild Nausea/No Vomiting Muscle Tremors: 4-Moderate,w/Arms Extend Anxiety: 3 Agitation: 3 Paroxysmal Sweats: 1-Minimal Palms Moist Orientation: 0-Oriented Tacttile Disturbances: 1-Very Mild Itch/Numbness Auditory Disturbances: 0-None Visual Disturbances: 0-None Headache: 0-None Present CIWA-Ar Total Score: 13 BHS Progress Note (SOAP) Subjective: sweat tremor anxiety restlessness trouble sleep at night Objective: 08/29/17 15:23 Vital Signs Temperature 96.8 F L 08/29/17 13:13 Pulse Rate 94 H 08/29/17 13:13 Respiratory Rate 18 08/29/17 13:13 Blood Pressure 138/69 08/29/17 13:13 O2 Sat by Pulse Oximetry (%) Laboratory Last Values WBC 5.8 K/mm3 (4.0-10.0) 08/28/17 08:00 RBC 3.92 M/mm3 (3.60-5.2) 08/28/17 08:00 Hgb 11.3 GM/dL (10.7-15.3) 08/28/17 08:00 Hct 34.0 % (32.4-45.2) 08/28/17 08:00 MCV 86.7 fl (80-96) 08/28/17 08:00 MCH 28.9 pg (25.7-33.7) 08/28/17 08:00 MCHC 33.3 g/dl (32.0-36.0) 08/28/17 08:00 RDW 14.3 % (11.6-15.6) 08/28/17 08:00 Plt Count 303 K/MM3 (134-434) 08/28/17 08:00 MPV 7.4 fl (7.5-11.1) L 08/28/17 08:00 Sodium 142 mmol/L (136-145) 08/28/17 08:00 Potassium 4.0 mmol/L (3.5-5.1) 08/28/17 08:00 Chloride 107 mmol/L (98-107) 08/28/17 08:00 Carbon Dioxide 29 mmol/L (21-32) 08/28/17 08:00 Anion Gap 6 (8-16) L 08/28/17 08:00 BUN 19 mg/dL (7-18) H 08/28/17 08:00 Creatinine 0.6 mg/dL (0.55-1.02) 08/28/17 08:00 Creat Clearance w eGFR > 60 (>60) 08/28/17 08:00 Random Glucose 86 mg/dL (74-106) 08/28/17 08:00 Calcium 8.0 mg/dL (8.5-10.1) L 08/28/17 08:00 Total Bilirubin 0.2 mg/dL (0.2-1.0) 08/28/17 08:00 AST 17 U/L (15-37) 08/28/17 08:00 ALT 25 U/L (12-78) 08/28/17 08:00 Alkaline Phosphatase 75 U/L (45-117) D 08/28/17 08:00 Total Protein 5.7 g/dl (6.4-8.2) L D 08/28/17 08:00 Albumin 2.7 g/dl (3.4-5.0) L 08/28/17 08:00 Urine Color Yellow 08/28/17 08:52 Urine Appearance Cloudy 08/28/17 08:52 Urine pH 5.0 (5.0-8.0) 08/28/17 08:52 Ur Specific [place] 1.015 (1.001-1.035) 08/28/17 08:52 Urine Protein Negative (NEGATIVE) 08/28/17 08:52 Urine Glucose (UA) Negative (NEGATIVE) 08/28/17 08:52 Urine Ketones Negative (NEGATIVE) 08/28/17 08:52 Urine Blood 1+ (NEGATIVE) H 08/28/17 08:52 Urine Nitrite Negative (NEGATIVE) 08/28/17 08:52 Urine Bilirubin Negative (<2.0 mg/dL) 08/28/17 08:52 Urine Urobilinogen Negative mg/dL (0.2-1.0) 08/28/17 08:52 Ur Leukocyte Esterase 2+ (NEGATIVE) H 08/28/17 08:52 Urine WBC (Auto) 6 /hpf (3-5) 08/28/17 08:52 Urine RBC (Auto) 2 /hpf (0-3) 08/28/17 08:52 Ur Epithelial Cells Moderate /HPF (FEW) 08/28/17 08:52 Urine Bacteria Rare /hpf (NONE SEEN) 08/28/17 08:52 Urine Mucus Few 08/28/17 08:52 RPR Titer Nonreactive (NONREACTIVE) 08/28/17 08:00 lab noted Assessment: 08/29/17 15:24 withdrawal sx Plan: continue detox
[2017-08-30] MEDS: chlordiazePOXIDE 5 MG CAPSULE PO SCH ×2 (06:33→08:41)
[2017-08-30] MEDS: THIAMINE HCL 100 MG TABLET (FP) PO SCH (08:41)
--- NOTE | 2017-08-30 08:47 | PN ---
BHS Progress Note (SOAP) Subjective: ALERT,NO COMPLAINT Objective: 08/30/17 08:46 Vital Signs Temperature 97.9 F 08/30/17 08:11 Pulse Rate 83 08/30/17 08:11 Respiratory Rate 20 08/30/17 08:11 Blood Pressure 147/72 08/30/17 08:11 O2 Sat by Pulse Oximetry (%) Assessment: 08/30/17 08:46 PATIENT IS STABLE FOR DISCHARGE WOULD LIKE TO GO HOME TODAY Plan: DISCHARGE TODAY,FOLLOW UP WITH AFTER CARE PROGRAM ARRANGEMENT
--- NOTE | 2017-08-30 08:52 | DS ---
[facility] Detox Discharge Summary Admission Date: 08/27/17 Discharge Date: 08/30/17 - History Present History: Alcohol Dependence Pertinent Past History: BLINDNESS OF RIGHT EYE GLAUCOMA ANXIETY AND DEPRESSION - Physical Exam Results Vital Signs: Vital Signs Temperature 97.9 F 08/30/17 08:11 Pulse Rate 83 08/30/17 08:11 Respiratory Rate 20 08/30/17 08:11 Blood Pressure 147/72 08/30/17 08:11 O2 Sat by Pulse Oximetry (%) Pertinent Admission Physical Exam Findings: WITHDRAWAL SIGNS AND SYMPTOM - Treatment Hospital Course: Detox Protocol Followed, Detoxed Safely, Responded well, Discharged Condition Good Patient has Accepted a Rehab Referral to: DECLINED - Medication Discharge Medications: Ambulatory Orders Prednisolone 1% Ophthalmic [Pred Forte 1% -] 1 ml OP DAILY 08/06/13 - Diagnosis (1) Alcohol dependence with uncomplicated withdrawal Current Visit: Yes Status: Acute (2) Alcohol-induced mood disorder Current Visit: Yes Status: Acute (3) Alcohol-induced sleep disorder Current Visit: Yes Status: Acute (4) Anxiety and depression Current Visit: Yes Status: Chronic (5) Glaucoma Current Visit: Yes Status: Chronic (6) Syncope Current Visit: No Status: Acute - AMA Did Patient Leave Against Medical Advice: No
[2017-08-30 11:13] VITALS: BP 119/69; PULSE 90; TEMP 97.7
--- NOTE | 2017-08-30 22:14 | EKG ---
Test Reason : Blood Pressure : / mmHG Vent. Rate : 087 BPM Atrial Rate : 087 BPM P-R Int : 114 ms QRS Dur : 096 ms QT Int : 412 ms P-R-T Axes : 017 050 064 degrees QTc Int : 495 ms NORMAL SINUS RHYTHM PROLONGED QT ABNORMAL ECG WHEN COMPARED WITH ECG OF 26-AUG-2017 15:13, NO SIGNIFICANT CHANGE WAS FOUND Confirmed by SUSY MERCEDES MD ([id number]) on 08/30/2017 10:13:57 PM Referred By: Confirmed By:SUSY MERCEDES MD
[2017-08-30] MEDS ORDERED: chlordiazePOXIDE HCL 10 MG CAPSULE PO SCH (23:00)
== END 2017-08-30 10:45 | disposition home or self-care (01) | DRG 897 ==
LOC: YASAS 18:12 → Y6N 20:46
PROVIDERS: ADMIT Family Medicine Addiction Medicine; ATTEND Family Medicine Addiction Medicine
PROC: HZ2ZZZZ Detoxification Services for Substance Abuse Treatment (ICD-10-PCS; principal; 2017-08-27)
DX: F19.230 Other psychoactive substance dependence with withdrawal, uncomplicated (principal); F10.230 Alcohol dependence with withdrawal, uncomplicated; F10.24 Alcohol dependence with alcohol-induced mood disorder; F10.282 Alcohol dependence with alcohol-induced sleep disorder; F41.8 Other specified anxiety disorders; H40.9 Unspecified glaucoma; H54.40 Blindness, one eye, unspecified eye; R00.0 Tachycardia, unspecified; Z91.81 History of falling
CPT/HCPCS: 36415; 71046-TC-FY; 80053; 81003; 81015; 85027; 86593; 93005; 93010